=== PATIENT | female | born 1980 | race Caucasian/White ===

== ENCOUNTER → 2023-12-10 | Outpatient (CLI) | payer BC ==
--- NOTE | 2024-01-02 20:08 | MM ---
Reason for Exam: Screening (asymptomatic). Last mammogram was performed 1 year(s) and 5 month(s) ago. Patient History: Menarche at age 16. Patient has no children. Last menstrual period: 11/20/2023 Risk Values: Xochilt 5 year model risk: 0.6%. NCI Lifetime model risk: 10.1%. Prior Study Comparison: 06/27/2022 Bilateral Screening Mammogram, Unknown. 07/27/2022 Right Diagnostic Mammogram, Unknown. Tissue Density: The breasts are heterogeneously dense, which may obscure small masses. Findings: Analyzed By CAD. Unchanged asymmetric density lateral right CC view middle depth. Chronic nodularity posterior upper outer quadrant right breast. There is new clustered nodularity apparent on 3-D images within the medial aspect of the left breast on the CC view, posterior depth. Further evaluation is recommended. Otherwise, no significant change. Overall Assessment: Incomplete: need additional imaging evaluation, BI-RAD 0 Management: Special View Mammogram of the left breast. Diagnostic Breast Ultrasound of the left breast. Additional views to include 3-D CC rolled view. [facility] will attempt to contact patient to return for supplemental views and ultrasound if indicated. Electronically signed and approved by: Ashlee Davila M.D. Radiologist
== END | disposition home or self-care (01) ==
LOC: RADMAMWWP 10:40
PROVIDERS: ATTEND Family Medicine
DX: Z12.31 Encounter for screening mammogram for malignant neoplasm of breast (principal); R92.333 Mammographic heterogeneous density, bilateral breasts
CPT/HCPCS: 77063; 77067

== ENCOUNTER → 2024-01-04 | Outpatient (CLI) | payer BC ==
--- NOTE | 2024-01-08 07:25 | MM ---
Reason for Exam: Additional evaluation requested from abnormal screening. Last screening mammogram was performed less than 1 month ago. Patient History: Menarche at age 16. Patient has no children. Patient used Hormonal Contraceptives for 10 years. Risk Values: Xochilt 5 year model risk: 0.6%. NCI Lifetime model risk: 10.1%. Prior Study Comparison: 06/27/2022 Bilateral Screening Mammogram, Unknown. 07/27/2022 Right Diagnostic Mammogram, Unknown. 12/10/2023 Bilateral MG 3D screening mammo w/cad, [facility]. Tissue Density: Left: The breasts are heterogeneously dense, which may obscure small masses. Findings: Analyzed By CAD. 8 mm and smaller isodense cluster nodularity in the medial aspect of the left breast posterior depth which appears to move laterally on the rolled view. Further ultrasound evaluation is recommended. Clustered cysts are possible. Overall Assessment: Incomplete: need additional imaging evaluation, BI-RAD 0 Management: Diagnostic Breast Ultrasound of the left breast. Electronically signed and approved by: Ashlee Davila M.D. Radiologist
--- NOTE | 2024-01-08 07:25 | USB ---
Reason for Exam: Additional evaluation requested from abnormal screening. Patient History: Menarche at age 16. Patient has no children. Patient used Hormonal Contraceptives for 10 years. Risk Values: Xochilt 5 year model risk: 0.6%. NCI Lifetime model risk: 10.1%. Technique: Method: Targeted. Prior Study Comparison: 06/27/2022 Bilateral Screening Mammogram, Unknown. 07/27/2022 Right Diagnostic Mammogram, Unknown. 12/10/2023 Bilateral MG 3D screening mammo w/cad, [facility]. Findings: The upper inner quadrant of the left breast, the axilla of the left breast and the retroareolar of the left breast were scanned. Targeted ultrasound upper inner quadrant left breast 9:00 to 12:00 including scanning of the subareolar region and axilla. A few scattered benign cysts are present, for example, measuring up to 5 mm at the 9:00 position, 10 cm from the nipple. Possible mammographic correlate. No additional solid or cystic lesion is seen. There is a borderline thickened, borderline-sized lymph node in the axilla measuring 1.6 x 1.4 x 0.7 cm. Cortex measuring 3 mm thick. Probably reactive/post inflammatory. This can also be reassessed at follow-up. Overall Assessment: Probably benign, BI-RAD 3 Management: Diagnostic Mammogram of the left breast in 6 months. Diagnostic Breast Ultrasound of the left breast in 6 months. Ultrasound to reassess the borderline thickened, probably reactive axillary node. A clinical breast exam by your physician is recommended on an annual basis and results should be correlated with mammographic findings. This exam should not preclude additional follow-up of suspicious palpable abnormalities. Results were given to the patient verbally at the time of exam. Electronically signed and approved by: Ashlee Davila M.D. Radiologist
== END | disposition home or self-care (01) ==
LOC: RADMAMWWP 13:01
PROVIDERS: ATTEND Family Medicine
DX: R92.8 Other abnormal and inconclusive findings on diagnostic imaging of breast (principal); R92.333 Mammographic heterogeneous density, bilateral breasts; N63.20 Unspecified lump in the left breast, unspecified quadrant
CPT/HCPCS: 77061; 77065

== ENCOUNTER → 2024-07-04 | Outpatient (CLI) | payer BC ==
--- NOTE | 2024-07-04 13:29 | MM ---
Reason for Exam: Follow-up at short interval from prior study. Last screening mammogram was performed 6 month(s) ago. Patient History: Menarche at age 16. Patient has no children. Patient used Hormonal Contraceptives for 10 years. Last menstrual period: 06/24/2024 Risk Values: Xochilt 5 year model risk: 0.6%. NCI Lifetime model risk: 10.1%. Tissue Density: Left: The breasts are heterogeneously dense, which may obscure small masses. Findings: Analyzed By CAD. Multiple masses/asymmetries are seen in the cc view slightly medial approximately 10 cm from the nipple measuring up to 8 mm. These are thought to be superiorly on MLO view at posterior depth 11 cm from the nipple. Overall Assessment: Incomplete: need additional imaging evaluation, BI-RAD 0 Management: Diagnostic Breast Ultrasound of the left breast. Results were given to the patient verbally at the time of exam. Patient should continue monthly self-breast exams. A clinical breast exam by your physician is recommended on an annual basis. This exam should not preclude additional follow-up of suspicious palpable abnormalities. Note on Xochilt scores and lifetime risk: 1. A Xochilt score greater than 3% is considered moderate risk. If this is the case, consider specialist referral to assess eligibility for a risk reducing agent. 2. If overall lifetime risk for the development of breast cancer is 20% or higher, the patient may qualify for future screening with alternating mammogram and breast MRI. [facility], , 07/04/2024 1:27 PM. Electronically signed and approved by: Dedrick Grimes DO
--- NOTE | 2024-07-04 14:38 | USB ---
Reason for Exam: Follow-up at short interval from prior study. Patient History: Menarche at age 16. Patient has no children. Patient used Hormonal Contraceptives for 10 years. Risk Values: Xochilt 5 year model risk: 0.6%. NCI Lifetime model risk: 10.1%. Prior Study Comparison: 07/27/2022 Right Diagnostic Mammogram, Unknown. 12/10/2023 Bilateral MG 3D screening mammo w/cad, [facility]. 01/04/2024 Left MG 3D work up w/cad LT, [facility]. Findings: The lateral section of the breast of the left breast, the axilla of the left breast and the retroareolar of the left breast were scanned. Technique utilized:US breast limited LT Image; Ultrasound imaging of: All 4 quadrants, the retroareolar region and axilla. Anechoic cyst at 9:00 10 cm from nipple shadow cyst also seen on this image. Measuring up to 5 mm.. Previous lymph node with cortex at the upper limits of normal at 3 mm is stable. Overall Assessment: Benign, BI-RAD 2 Management: Screening Mammogram of both breasts in 1 year. A clinical breast exam by your physician is recommended on an annual basis and results should be correlated with mammographic findings. This exam should not preclude additional follow-up of suspicious palpable abnormalities. Results were given to the patient verbally at the time of exam. [facility], , 07/04/2024 2:35 PM. Electronically signed and approved by: Dedrick Grimes DO
== END | disposition home or self-care (01) ==
LOC: RADMAMWWP 13:02
PROVIDERS: ATTEND Family Medicine
DX: R92.8 Other abnormal and inconclusive findings on diagnostic imaging of breast (principal); R92.332 Mammographic heterogeneous density, left breast; Z92.0 Personal history of contraception
CPT/HCPCS: 77061; 77065